=== PATIENT | female | born 1995 | race Caucasian/White ===

== ENCOUNTER 2016-11-17 08:46 | Day surgery (SDC) | payer OTHER ==
[~2016-11-17] VITALS: Ht 160 cm; Wt 55.0 kg
[2016-11-17] VITALS (7 sets, daily range): BP systolic 76–108; BP diastolic 35–66; PULSE 64–85; RESP 16–23; Ht 160 cm; Wt 55.0 kg
[~2016-11-17 08:46] MED LIST: CEFAZOLIN 1 GM INJ ONE
[2016-11-17] MEDS ORDERED: LORA0.5T PO (09:34)
[2016-11-17] MEDS ORDERED: LORA-441 PO (09:34)
[2016-11-17] MEDS ORDERED: MIDAZOLAM 1 MG/ML 2 ML INJ ONE (10:00)
[2016-11-17] MEDS ORDERED: BUPIVACAINE 0.25%/EPI (SDV) 30 ML INJ ONE (10:00)
[2016-11-17] MEDS ORDERED: FENTAnyl 50 MCG/ML VIAL ONE (10:11)
[2016-11-17] MEDS ORDERED: LIDOCAINE 2% (SDV) 5 ML INJ ONE (10:14)
[2016-11-17] MEDS ORDERED: PROPOFOL 20 ML ONE (10:14)
[2016-11-17] MEDS ORDERED: EPHEDrine SULFATE 50 MG/5 ML SYG IV PRN (10:30)
[2016-11-17] MEDS ORDERED: ONDANSETRON 4 MG INJ IV PRN (10:30)
[2016-11-17] MEDS ORDERED: FENTAnyl 50 MCG/ML VIAL IV PRN ×3 (10:30)
[2016-11-17] MEDS ORDERED: LABETALOL HCL 20MG INJ IV PRN (10:30)
[2016-11-17] MEDS ORDERED: MIDAZOLAM 1 MG/ML 2 ML INJ IV PRN (10:30)
--- NOTE | 2016-11-17 11:13 | OPR ---
Date/Time of Note Date/Time of Note DATE: 11/17/16 TIME: 11:12 Operative Report Operative Findings [facility] INPATIENT OPERATIVE NOTE PLACE OF SERVICE: [facility] DATE OF SURGERY: 11/17/2016 PREOPERATIVE DIAGNOSIS: 1. Left breast Mass. 2. Anxiety POSTOPERATIVE DIAGNOSIS: 1. Left breast Mass. 2. Anxiety OPERATION: 1. Percutaneous core needle biopsy of left breast mass (3 cores) 2. Ultrasound evaluation of left breast mass (Limited) SURGEON: Olamide Weston M.D. WEIGHTER: None ANESTHESIA: General endotracheal tube anesthesia ANESTHESIOLOGIST: Ch. Brisa M.D. BRIEF SUMMARY: An otherwise uncomplicated corneal biopsy of left breast mass was performed with findings of likely fibroadenoma and otherwise benign- appearing lesion on limited left breast mass ultrasound. BRIEF HISTORY: The patient is a very pleasant 21-year-old young lady, well known to me since Jun 2016, without significant past medical history, for the care of what appeared to be a 2.1 x 1.3 x 1.7 cm mass at the 4 o'clock position from the nipple in the left breast, c/w a benign fibroadenoma on the available ultrasound imaging studies. + pain in the area; - asymmetry in her breast; - discharge from her nipples; otherwise healthy. Patient also had multiple other areas in her breasts bilaterally that appear to be a similar process, although certainly not as prominent as the 2 cm one in the left lateral breast. I also had the privilege of taking care of her mother who also had the same type of fibroadenoma tissues in her right breast. Working diagnosis was benign lesions (likely fibroadenoma on 2 US's prior to her initial visit with us). Also, significant anxiety, higher than normal in this age range. Short-term followup with repeat ultrasound of the breast 10/20/2016 showed 2.6x1.5x2.3 cm lesion ( slight growth in size). Patient showed slight increase in the size of the left breast lesion (4 o'clock position from the nipple ) with working diagnosis of fibroadenoma. Given the slight increase in size, a percutaneous biopsy vs. surgical excision was recommended. We reviewed options and answered all questions. Please note that the patient was severely anxious about any pain or discomfort that any procedure would entail. She was also severely anxious about having this lesion to a point that it was reducing the quality of her life. I believed I was able to address her anxiety enough with counseling that she would be amenable to an image-guided needle biopsy, but only if it can be arranged under significant sedation or general anesthesia. This may have required more resources than was normally used in this setting (? surgery center or hospital outpatient setting). I believe that the patient and her mother understand and agree with the plan. After attempts at scheduling this as an outpatient in the breast center, he became obvious that our local resources limited her ability to have a biopsy only in an inpatient hospital setting. For this reason, we scheduled her for a needle biopsy of the lesion under heavy sedation in the hospital. For a detailed report of my consultation with patient and family, please refer to my separate consultation note. STATEMENT OF THE INFORMED CONSENT: The patient and family appeared to understand the risks of the operation to include, but not be limited to risk of postoperative pain and scar tissue, possible infection or bleeding requiring other interventions such as opening the wound, placement of drainage catheters, or other operative interventions; possible injury to surrounding to structures including muscle, bone, lungs, and heart requiring other interventions or procedures; possible other source of sepsis such as urinary tract infections or pneumonias, or other sources of potentially life threatening problems such as deep venous thrombus formation causing pulmonary embolism, myocardial arrhythmias and infarctions, and even . After careful consideration of all their options, the patient and family appeared to understand and wished to proceed with surgery. DESCRIPTION OF PROCEDURE: After obtaining informed consent, the patient was brought into the operating room and was placed in a normal supine position, where successful general endotracheal tube anesthesia was performed. Intravenous access was already in place and intravenous antimicrobials had been appropriately chosen and dosed prior to the operation. The patient's left breast skin was prepped and draped in the usual sterile fashion. We then called a surgical time-out where the patient's identification, date of , nature of the operation, allergies, presence of intravenous antimicrobials, presence of needed equipment, and any other concerns were reviewed and agreed upon by all members of the operating room team. We then started the operation by performing a limited ultrasound evaluation of the left breast lesion which showed a well demarcated solid mass approximately 2 cm in greatest dimension and present within a few millimeters of the subcutaneous fat. No other worrisome features were noted. We then injected the skin overlying the mass with quarter percent Marcaine with epinephrine and then placed a small skin incision using an 11 blade scalpel and then obtained 3 Walter- Cut core needle biopsies from the mass and send this to pathology for permanent sections. After ensuring hemostasis, we closed the skin using Dermabond and placed a sterile dressing over that. At the end of the operation, both the sponge count and needle count were reportedly correct x2. The patient tolerated the procedure without any reported complications. ESTIMATED BLOOD LOSS: 1 ml BLOOD OR BLOOD PRODUCT TRANSFUSIONS: None to my knowledge. SPECIMENS: Walter-Cut core needle biopsy of 4:00 from the nipple lesion of the left breast ( 3 cores) COMPLICATIONS: None. DISPOSITION: Recovery area. Disclaimer: Inadvertent spelling and grammatical errors are likely due to EHR/ dictation software use and do not reflect on the quality of delivered patient care. Also, please note that the electronic time recorded on this node does not necessarily reflect the actual time of the visit. OLAMIDE WESTON M.D. Nov 17, 2016 11:13
[2016-11-17] MEDS ORDERED: HYDROCODONE/APAP (5/325) TAB PO PRN ×2 (11:30)
[2016-11-17] MEDS ORDERED: DOCUSATE SODIUM 100 MG CAP PO PRN (11:30)
[2016-11-17] MEDS ORDERED: BISACODYL 10 MG SUPP PR PRN (11:30)
== END 2016-11-17 12:35 | disposition home or self-care (01) ==
LOC: SDS 08:46
PROVIDERS: ATTEND Transplant Surgery
DX: D24.2 Benign neoplasm of left breast (principal)
CPT/HCPCS: 19100; 84703; J0690; J2250; J3010

== ENCOUNTER 2016-11-25 15:05 | Outpatient (CLI) | payer OTHER ==
[~2016-11-25] VITALS: Ht 160 cm; Wt 55.9 kg
[~2016-11-25 15:05] MED LIST changes: -CEFAZOLIN 1 GM INJ ONE; +LORA-441 PO; +LORA0.5T PO
[2016-11-25 15:17] VITALS: Ht 160 cm; Wt 55.9 kg
[2016-11-25 15:18] VITALS: BP 96/55; PULSE 92; RESP 16
--- NOTE | 2016-11-25 15:35 | PN ---
Date/Time of Note Date/Time of Note DATE: 11/25/16 TIME: 15:24 Assessment/Plan Assessment/Plan Assessment/Plan [facility] Progress Note Date of Service: 11/25/16 Place of Service: [facility] Today's Impression and Plan: Doing well s/p percutaneous biopsy L breast lesion 11/17/16 with fibroadenomatoid nodule with cellular stroma and no evidence of malignancy. Patient appears to be reassured and would like to observe symptomatically. I agreed and recommended routine follow up with PCP. Answered all questions. With above assessment, I have recommended the followin. F/u with PCP 2. F/u with prn Thank you again for allowing us to participate in the care of this very pleasant young lady and her wonderful family. If there are any questions, please feel free to call me at [phone]. TOTAL VISIT TIME: 30 minutes of which more than half was spent in [id number] discussion with the patient, discussions with her mother, as well as coordination of care between multiple physicians and providers. Updated Clinical Summary: A very pleasant 21-year-old young lady, well known to me from prior visit in Jun 2016, without significant past medical history, for the care of what appeared to be a 2.1 x 1.3 x 1.7 cm mass at the 4 o'clock position from the nipple in the left breast, c/w a benign fibroadenoma on the available ultrasound imaging studies. + pain in the area; - asymmetry in her breast; - discharge from her nipples; otherwise healthy. Patient also had multiple other areas in her breasts bilaterally that appear to be a similar process, although certainly not as prominent as the 2 cm one in the left lateral breast. I also had the privilege of taking care of her mother who also had the same type of fibroadenoma tissues in her right breast. Working diagnosis was benign lesions (likely fibroadenoma on 2 US's prior to her initial visit with us). Also, significant anxiety, higher than normal in this age range. Short-term followup with repeat ultrasound of the breast 10/20/2016 showed 2.6x1.5x2.3 cm lesion ( slight growth in size). S/p percutaneous biopsy L breast lesion 11/17/16 with fibroadenomatoid nodule with cellular stroma and no evidence of malignancy Subjective: No major events or complaints after biopsy. No major pain complaints. Much more comfortable with the idea of having the lesion knowing it is benign. Objective: Vitals: See below Exam: GENERAL: On exam, the patient was sitting in a chair and appeared to be comfortable and in no acute distress. LEFT BREAST EXAM (Focal): Percutaneous biopsy site c/d/i w/o e/e/d SKIN: Skin appears to be pink and feels warm to touch. NEUROLOGIC: Patient is awake, alert, and follows commands appropriately. Exam/Review of Systems Vital Signs Vitals Vital Signs Date Time Temp Pulse Resp B/P Pulse Ox O2 Delivery O2 Flow Rate FiO2 11/25/16 15:18 98.6 92 16 96/55 100 Room Air OLAMIDE WESTON M.D. Nov 25, 2016 15:35
== END 2016-11-25 16:28 | disposition home or self-care (01) ==
LOC: HPC 15:05
PROVIDERS: ATTEND Transplant Surgery
DX: D24.2 Benign neoplasm of left breast (principal)
CPT/HCPCS: G0463

== ENCOUNTER → 2017-08-11 | Outpatient (CLI) | payer OTHER ==
[~2017-08-11] VITALS: Ht 160 cm; Wt 55.2 kg
[2017-08-11 10:37] VITALS: BP 124/58; PULSE 93; RESP 16; Ht 160 cm; Wt 55.2 kg
--- NOTE | 2017-08-11 14:31 | PN ---
Date/Time of Note Date/Time of Note DATE: 08/11/17 TIME: 14:26 Assessment/Plan Assessment/Plan Assessment/Plan [facility] Progress Note Date of Service: 08/11/17 Place of Service: [facility] at [facility] Today's Impression and Plan: Overall stable with known left breast fibroadenomatoid nodule (biopsy-proven ) that has remained relatively stable despite 1 month history of oral contraceptive use. I again spent quite a bit of time with the patient and her mother and younger sister reassuring her that at this time, I do not see any indication for further intervention or repeat image. We discussed at length the other option of surgical removal of this area if the patient's anxiety level is at a point that it starts affecting her life. After considering her options, the patient told me that at this time, she does not believe that she would like to proceed with any other interventions and agreed to have follow-up ultrasound within approximately 1 year from last ultrasound. I agreed and recommended routine follow up with PCP. Answered all questions. With above assessment, I have recommended the followin. F/u with PCP 2. F/u with us after her ultrasound of the breast is done in accordance to above schedule (one year from last ultrasound) 3. Call me and follow-up with us if any changes in size, pain intensity, skin coloring changes, nipple discharge, or any other concerning features Thank you again for allowing us to participate in the care of this very pleasant lady and her wonderful family. If there are any questions, please feel free to call me at [phone]. Nature of presenting problem: Low severity Please note that, given the minimal number of diagnoses or management options, the limited amount and/or complexity of data needed to be reviewed, and low risk of complications and/or morbidity or mortality, this qualifies as low complexity type of decision-making. Disclaimers: 1. Inadvertent spelling and grammatical errors are likely due to electronic health record (EHR)/dictation software used and do not reflect on the quality of delivered patient care. 2. The electronic timestamp recorded on this note does not necessarily reflect the actual date and time of the visit or the service. 3. Portions of this note may have been created through electronic templates and computer algorithms that might bring in information either from the system or from other physicians and providers. Please note that such information may or may not contain errors, the occurrence of which are outside of my control. In general (but not always) this happens either in the beginning or at the end of the note. The portion of the note that I have created are generally done in 1 continuous block of text, flanked at the beginning and at the end by " ", and entered into one field in the EHR. 4. There may be other unanticipated errors in the note that are outside of my control. I can only attest to the portions of the note that I have created. Updated Clinical Summary: A very pleasant 21-year-old young lady, well known to me from prior visit in Jun 2016, without significant past medical history, for the care of what appeared to be a 2.1 x 1.3 x 1.7 cm mass at the 4 o'clock position from the nipple in the left breast, c/w a benign fibroadenoma on the available ultrasound imaging studies. + pain in the area; - asymmetry in her breast; - discharge from her nipples; otherwise healthy. Patient also had multiple other areas in her breasts bilaterally that appear to be a similar process, although certainly not as prominent as the 2 cm one in the left lateral breast. I also had the privilege of taking care of her mother who also had the same type of fibroadenoma tissues in her right breast. Working diagnosis was benign lesions (likely fibroadenoma on 2 US's prior to her initial visit with us). Also, significant anxiety, higher than normal in this age range. Short-term followup with repeat ultrasound of the breast 10/20/2016 showed 2.6x1.5x2.3 cm lesion ( slight growth in size). S/p percutaneous biopsy L breast lesion 11/17/16 with fibroadenomatoid nodule with cellular stroma and no evidence of malignancy. Patient started oral contraceptive use middle of July 2017. Comorbidities: 1. Anxiety 2. Panic attacks 3. L breast lesion, s/p percutaneous biopsy L breast lesion 11/17/16 with fibroadenomatoid nodule with cellular stroma and no evidence of malignancy. 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 Otherwise, patient reports no major events or complaints. No major pain complaints. No changes in bowel or bladder habits or in appetite. No changes in her breasts including no discharge, no asymmetry, and no other complaints. Objective: Vitals: See below Exam: GENERAL: On exam, the patient was sitting in a chair and appeared to be comfortable and in no acute distress. Patient was examined in the presence of her mother, younger sister, and an [employer] employee (Santiago Bravo). BREASTS: Exam shows normal and symmetric breasts without any skin dimpling with raised arms on both sides as well as with the arms down. Careful exam of the right breast showed multiple small 3 to 5 mm areas of nodules spread throughout the breast symmetrically that was associated with minimal tenderness with palpation. The skin appeared to be normal and there was no nipple discharge. There were masses under the nipple areolar complex. The left breast exam showed a 2 cm lesion at the 4 o'clock position approximately 5 or 6 cm away from the nipple at the nipple areolar complex. This area contained no ominous features. The mass was fairly mobile and some tenderness to palpation, but not as much tenderness as the other 5 to 8 mm lesions that were spread throughout the left breast as well. Size was similar to prior exams and approximately 2 cm in length. The nipple areolar complex was normal and there was no nipple discharge with squeezing the nipple. I also examined both axillary areas, none of which contained any palpable lymphadenopathy or other abnormal features. The patient's carotid pulses and right radial pulses were normal. SKIN: Skin appears to be pink and feels warm to touch. NEUROLOGIC: Patient is awake, alert, and follows commands appropriately. Exam/Review of Systems Vital Signs Vitals Vital Signs Date Time Temp Pulse Resp B/P Pulse Ox O2 Delivery O2 Flow Rate FiO2 08/11/17 10:37 98.2 93 16 124/58 96 Room Air OLAMIDE WESTON M.D. Aug 11, 2017 14:31
== END | disposition home or self-care (01) ==
LOC: HPC 10:33
PROVIDERS: ATTEND Transplant Surgery
DX: N63.0 Unspecified lump in unspecified breast (principal); F41.9 Anxiety disorder, unspecified; F41.0 Panic disorder [episodic paroxysmal anxiety]

== ENCOUNTER 2017-11-08 11:37 | Outpatient (CLI) | END 2017-11-08 17:00 | disposition home or self-care (01) ==

== ENCOUNTER 2017-11-30 11:17 | Day surgery (SDC) | END 2017-11-30 15:33 | disposition home or self-care (01) ==

== ENCOUNTER 2017-12-22 13:13 | Outpatient (CLI) | END 2017-12-22 15:44 | disposition home or self-care (01) ==

== ENCOUNTER 2018-01-19 13:21 | Outpatient (CLI) | END 2018-01-19 15:48 | disposition home or self-care (01) ==